=== PATIENT | female | born 1975 | race African-American/Black ===

== ENCOUNTER 2021-12-24 19:24 | Emergency (ER) | payer OTHER, MEDICAID ==
[~2021-12-24] VITALS: Ht 162.6 cm; Wt 87.7 kg
[~2021-12-24 19:24] MED LIST: HYDR25TA PO
[2021-12-24 21:27] VITALS: BP 156/83
== END 2021-12-24 21:30 | disposition home or self-care (01) ==
LOC: ER 19:24
DX: I10 Essential (primary) hypertension (principal); E11.9 Type 2 diabetes mellitus without complications; Z79.899 Other long term (current) drug therapy
CPT/HCPCS: 93005; 99283

== ENCOUNTER 2022-12-08 21:34 | Emergency (ER) | payer OTHER, MEDICAID ==
[~2022-12-08] VITALS: Ht 162.6 cm; Wt 85.6 kg
[2022-12-09] MEDS ORDERED: IBUPROFEN 600MG TABLET PO ONE (00:45)
[2022-12-09 02:27] VITALS: BP 170/93
== END 2022-12-09 02:27 | disposition home or self-care (01) ==
LOC: ER 21:34
DX: I10 Essential (primary) hypertension (principal); E11.9 Type 2 diabetes mellitus without complications; Z98.890 Other specified postprocedural states; Z98.51 Tubal ligation status
CPT/HCPCS: 99282; Z7610

== ENCOUNTER 2024-01-30 19:09 | Emergency (ER) | payer MEDICAID, OTHER ==
[~2024-01-30] VITALS: Ht 162.6 cm; Wt 87.0 kg
[2024-01-30 19:53] VITALS: BP 152/83; PULSE 73; RESP 16; TEMP 98.6; O2SAT 98
[2024-01-30] MEDS: ACETAMINOPHEN 325MG TABLET PO ONE (23:04)
[2024-01-31] MEDS ORDERED: IBUP-2028 MT (00:15)
== END 2024-01-31 00:36 | disposition home or self-care (01) ==
LOC: ER 19:09
DX: S83.8X2A Sprain of other specified parts of left knee, initial encounter (principal); S83.8X1A Sprain of other specified parts of right knee, initial encounter; E11.9 Type 2 diabetes mellitus without complications; I10 Essential (primary) hypertension; Z98.51 Tubal ligation status; Z90.710 Acquired absence of both cervix and uterus; Z98.890 Other specified postprocedural states; W18.39XA Other fall on same level, initial encounter; Y93.89 Activity, other specified; Y92.89 Other specified places as the place of occurrence of the external cause; Y99.8 Other external cause status
CPT/HCPCS: 73562; 99283

== ENCOUNTER 2024-02-14 19:53 | Emergency (ER) | payer MEDICAID ==
[~2024-02-14] VITALS: Ht 162.6 cm; Wt 87.0 kg
[~2024-02-14 19:53] MED LIST changes: +IBUP-2028 MT
[2024-02-14 20:22] VITALS: O2SAT 99
[2024-02-14] MEDS ORDERED: DOXY200T8 MT (22:09)
[2024-02-14] MEDS ORDERED: CEPH500C2 MT (22:09)
[2024-02-14] MEDS ORDERED: TC1C15 TP (22:09)
[2024-02-14 22:50] VITALS: BP 157/83; PULSE 70; RESP 18; TEMP 97.3
== END 2024-02-14 22:53 | disposition home or self-care (01) ==
LOC: ER 19:53
DX: S70.362A Insect bite (nonvenomous), left thigh, initial encounter (principal); W57.XXXA Bitten or stung by nonvenomous insect and other nonvenomous arthropods, initial encounter; Y93.89 Activity, other specified; Y92.89 Other specified places as the place of occurrence of the external cause; Y99.8 Other external cause status
CPT/HCPCS: 99283

== ENCOUNTER 2024-04-07 19:15 | Emergency (ER) | payer MEDICAID ==
[~2024-04-07] VITALS: Ht 162.6 cm; Wt 84.0 kg
[~2024-04-07 19:15] MED LIST changes: +CEPH500C2 MT; +DOXY200T8 MT; +TC1C15 TP
[2024-04-07 19:59] VITALS: O2SAT 100
[2024-04-07] MEDS: DEXAMETHASONE 10 MG/ML VIAL IM ONE (21:41)
[2024-04-07] MEDS: DIPHENHYDRAMINE 50MG/ML VIAL IM ONE (21:56)
[2024-04-07] MEDS ORDERED: HYDR453.3 TP (21:59)
[2024-04-07 22:20] VITALS: BP 187/89; PULSE 72; RESP 20; TEMP 98.3
== END 2024-04-07 22:22 | disposition home or self-care (01) ==
LOC: ER 19:15
DX: S40.862A Insect bite (nonvenomous) of left upper arm, initial encounter (principal); S40.861A Insect bite (nonvenomous) of right upper arm, initial encounter; E11.9 Type 2 diabetes mellitus without complications; I10 Essential (primary) hypertension; Z79.899 Other long term (current) drug therapy; W57.XXXA Bitten or stung by nonvenomous insect and other nonvenomous arthropods, initial encounter; Y93.89 Activity, other specified; Y92.89 Other specified places as the place of occurrence of the external cause; Y99.8 Other external cause status
CPT/HCPCS: 96372; 99283; J1100; J1200; Z7610

== ENCOUNTER 2025-02-28 14:42 | Emergency (ER) | payer MEDICAID ==
[~2025-02-28] VITALS: Ht 162.6 cm; Wt 80.0 kg
[~2025-02-28 14:42] MED LIST changes: +HYDR453.3 TP
[2025-02-28 14:52] VITALS: TEMP 37; O2SAT 99
[2025-02-28] MEDS ORDERED: IBUP-2028 MT (18:24)
[2025-02-28] MEDS ORDERED: TC1C15 TP (18:24)
[2025-02-28] MEDS ORDERED: CEPH500C2 MT (18:24)
[2025-02-28 18:33] VITALS: BP 108/74; PULSE 78; RESP 16; O2SAT 99
== END 2025-02-28 18:34 | disposition home or self-care (01) ==
LOC: ER 14:42
DX: T63.481A Toxic effect of venom of other arthropod, accidental (unintentional), initial encounter (principal); E11.9 Type 2 diabetes mellitus without complications; I10 Essential (primary) hypertension; Z90.710 Acquired absence of both cervix and uterus; Z79.899 Other long term (current) drug therapy; Y92.89 Other specified places as the place of occurrence of the external cause
CPT/HCPCS: 99283